=== PATIENT | female | born 1995 | race Caucasian/White ===

== ENCOUNTER 2018-08-13 09:05 | Emergency (ER) | payer OTHER ==
[~2018-08-13] VITALS: Ht 157.5 cm; Wt 61.2 kg
[2018-08-13] MEDS ORDERED: BACTRIM DS TAB1 EACH PO (10:00)
[2018-08-13] MEDS ORDERED: HYDROCODONE-AP1 EAC6 PO (10:00)
[2018-08-13 10:11] VITALS: BP 119/77
== END 2018-08-13 10:12 | disposition home or self-care (01) ==
LOC: M.ERS 09:05
DX: S71.151A Open bite, right thigh, initial encounter (principal); L03.115 Cellulitis of right lower limb; W54.0XXA Bitten by dog, initial encounter; Y93.89 Activity, other specified; Y92.89 Other specified places as the place of occurrence of the external cause; Y99.8 Other external cause status